=== PATIENT | female | born 1975 | race Caucasian/White ===

== ENCOUNTER 2023-08-10 12:12 | Emergency (ER) | payer BC ==
[~2023-08-10] VITALS: Ht 167.6 cm; Wt 83.9 kg
[2023-08-10 12:46] VITALS: BP 144/74; PULSE 69; RESP 16; TEMP 97.8; O2SAT 99
[2023-08-10 14:05] VITALS: BP 144/74; PULSE 69; RESP 16; TEMP 97.8; O2SAT 99
[2023-08-10] MEDS ORDERED: KETOROLAC 30 MG/ML VIAL IM ONE (16:40)
[2023-08-10] MEDS ORDERED: IBUP-2213 PO (16:45)
== END 2023-08-10 17:07 | disposition home or self-care (01) ==
LOC: MED 12:12
DX: N60.02 Solitary cyst of left breast (principal); Z79.899 Other long term (current) drug therapy
CPT/HCPCS: 76641; 99284; Q0092